=== PATIENT | male | born 1970 | race American Indian/Alaskan Native ===

== ENCOUNTER 2018-05-30 10:02 | Outpatient (CLI) | payer OTHER ==
--- NOTE | 2018-05-30 22:25 | XRay Report ---
FINAL REPORT EXAM: XR ANKLE 2V LT HISTORY: HEADACHES, INSOMNIA, ARTHRITIS TECHNIQUE: AP, lateral, and oblique views of the left ankle PRIORS: None. FINDINGS: There is no evidence for acute fracture or dislocation. No soft tissue swelling or radiopaque foreign bodies are seen. The ankle mortise is intact. Bony mineralization is normal and joint spaces are maintained. IMPRESSION: No acute soft tissue or bony abnormality noted.
--- NOTE | 2018-05-30 22:25 | XRay Report ---
FINAL REPORT EXAM: XR FOREARM RT HISTORY: HEADACHES, INSOMNIA, ARTHRITIS TECHNIQUE: AP and lateral views of the right forearm PRIORS: None. FINDINGS: There is no evidence for acute fracture or dislocation. No soft tissue swelling or radiopaque foreign bodies are seen. Bony mineralization is normal and joint spaces are maintained. There are degenerative spurs off the anterior aspect of the humeral condyles. IMPRESSION: No acute bony or soft tissue abnormality noted. Spurring off the anterior humeral condyles.
== END 2018-05-30 10:03 | disposition home or self-care (01) ==
LOC: XRAY 10:02
PROVIDERS: ATTEND Internal Medicine
DX: M13.872 Other specified arthritis, left ankle and foot (principal); M13.871 Other specified arthritis, right ankle and foot; M13.841 Other specified arthritis, right hand; G44.309 Post-traumatic headache, unspecified, not intractable; G47.00 Insomnia, unspecified; H93.19 Tinnitus, unspecified ear